=== PATIENT | male | born 1985 | race Caucasian/White ===

== ENCOUNTER 2023-10-13 09:38 | Emergency (ER) | payer SELFPAY ==
[~2023-10-13] VITALS: Ht 162.6 cm; Wt 81.6 kg
[2023-10-13 09:51] VITALS: BP 212/126; PULSE 88; RESP 24; TEMP 98.3; O2SAT 99
[2023-10-13 10:38] LABS: BASOPHILS # (AUTO) 0.1 K/uL (0.00-0.22); BASOPHILS % (AUTO) 0.6 % (0.0-2.0); EOSINOPHILS # (AUTO) 0.3 K/uL (0-0.4); EOSINOPHILS % (AUTO) 3.2 % (0.0-4.0); HEMATOCRIT 44.3 % (36-52); HEMOGLOBIN 15.3 g/dL (12.0-18.0); LYMPHOCYTES % (AUTO) 22.8 % (20.5-51.1); MEAN CORPUSCULAR HEMOGLOBIN 30 pg (27-31); MEAN CORPUSCULAR HGB CONC 35 g/dL (33-37); MEAN CORPUSCULAR VOLUME 86.1 fL (80-94); MONOCYTES # (AUTO) 0.6 K/uL (0.8-1.0); MONOCYTES % (AUTO) 6.9 % (1.7-9.3); NEUTROPHILS # (AUTO) 5.8 K/uL (1.8-7.7); NEUTROPHILS % (AUTO) 66.5 % (42.2-75.2); PLATELET COUNT (AUTO) 286 K/uL (140-450); RED BLOOD CELL COUNT(AUTO) 5.15 MIL/uL (4.20-6.10); RED CELL DISTRIBUTION WIDTH 13.2 % (11.6-13.7); WHITE BLOOD COUNT (AUTO) 8.7 K/uL (4.8-10.8)
[2023-10-13 11:58] LABS: ANION GAP 10.7 (8-16); CARBON DIOXIDE 31.4 mmol/L (21-32); CREATININE 1.2 mg/dL (0.6-1.3); POTASSIUM 3.1 mmol/L (3.5-5.1)
[2023-10-13 12:10] VITALS: O2SAT 98
[2023-10-13] MEDS: KETOROLAC 30 MG/ML VIAL IVP ONE (12:26)
[2023-10-13] MEDS: POTASSIUM CHLORIDE 10 MEQ TABER PO ONE (12:26)
[2023-10-13] MEDS: hydrALAZINE 20 MG/ML VIAL IVP ONE (12:29)
[2023-10-13 13:21] VITALS: BP 157/95; PULSE 88; RESP 16; TEMP 98.3; O2SAT 98
[2023-10-13] MEDS ORDERED: IBUP-2213 PO (13:32)
[2023-10-13] MEDS ORDERED: AMLO5TAB PO (13:32)
[2023-10-13] MEDS ORDERED: FAMO-90 PO (13:47)
== END 2023-10-13 13:56 | disposition home or self-care (01) ==
LOC: MED 09:38
DX: I10 Essential (primary) hypertension (principal); R51.9 Headache, unspecified; K29.70 Gastritis, unspecified, without bleeding; Z79.899 Other long term (current) drug therapy
CPT/HCPCS: 36415; 70450; 80048; 83880; 84484; 85025; 93005; 96374; 96375; 99285; J0360; J1885